=== PATIENT | male | born 1955 | race Caucasian/White ===

== ENCOUNTER 2019-07-03 13:23 | Outpatient (CLI) | payer OTHER, SELFPAY ==
--- NOTE | ~2019-07-03 | NM_ITS ---
EXAMINATION: NM muga DATE: 07/03/2019 14:59 INDICATION: Atrioventricular block. COMPARISON: Chest CT 07/22/2014 TECHNIQUE: Stannous pyrophosphate was administered IV. After a waiting period, 21.4 mCi Tc-99m pertec hnetate was administered IV to radiolabel the red blood cells. Gated images of the heart were obtaine d in the best septal view.] FINDINGS: There is no regional wall motion abnormality or paradoxical motion of the left ventricle. The left ventricular ejection fraction measures 49%. IMPRESSION: 1. Left ventricular ejection fraction measuring 49%. Reviewed, dictated and finalized at location A. ICAL NURSE
== END 2019-07-03 13:24 | disposition home or self-care (01) ==
LOC: ANHIMG 13:32
PROVIDERS: PCP Internal Medicine
DX: I44.30 Unspecified atrioventricular block (principal)
CPT/HCPCS: 78472; A9538

== ENCOUNTER → 2020-10-03 00:22 | Outpatient (CLI) | payer OTHER, SELFPAY ==
[2020-10-03 21:52] LABS: SARS-CoV-2 RNA PCR Negative
== END ==
PROVIDERS: PCP Internal Medicine; Visit Provider Internal Medicine Cardiovascular Disease
DX: Z01.812 Encounter for preprocedural laboratory examination (principal); Z20.822 Contact with and (suspected) exposure to COVID-19
CPT/HCPCS: C9803; U0003; U0005

== ENCOUNTER → 2020-10-06 02:48 | Day surgery (SDC) | payer OTHER, SELFPAY ==
[2020-10-06 07:36] LABS: Basophils Percent Auto 0.4 % (0.2-1.2); Eosinophils Absolute Auto 0.7 K/mm3 (0-0.3); Eosinophils Percent Auto 9.9 % (0-4.4); Hematocrit 42.3 % (42.0-52.0); Immature Granulocyte Absolute 0.02 K/mm3 (0.00-0.031); Immature Granulocyte Percent A 0.3 % (0-0.5); Lymphocytes Absolute Auto 2.29 K/mm3 (0.9-3.2); Lymphocytes Percent Auto 32.7 % (18.3-44.2); Mean Corpuscular HGB Conc 35.5 g/dl (32-36); Mean Corpuscular Hemoglobin 33.7 pg (26-34); Mean Corpuscular Volume 95.1 fl (80-100); Mean Platelet Volume 9.8 fl (7.4-10.4); Monocytes Absolute Auto 0.8 K/mm3 (0.1-0.6); Monocytes Percent Auto 11.7 % (2.6-8.5); Neutrophils Absolute Auto 3.2 K/mm3 (1.3-6.7); Platelet Count Result 169 k/mm3 (150-375); Red Blood Count 4.45 M/mm3 (4.6-6.20); Red Cell Distribution Width 12.1 % (11.5-14.5)
[2020-10-06 07:43] VITALS: BP 142/84; PULSE 62; RESP 12; TEMP 36.4; O2SAT 100; BMI 29.8
[2020-10-06 07:46] LABS: Anion Gap 8 mmol/L (8-16); Blood Urea Nitrogen 11 mg/dL (9-20); Calcium 8.9 mg/dL (8.4-10.2); Carbon Dioxide 24 mmol/L (22-30); Chloride 111 mmol/L (98-107); Estimated Glomerular Filt Rate > 60; Glucose 107 mg/dL (75-110); Sodium 143 mmol/L (137-145)
[2020-10-06 08:04] LABS: Prothrombin Time 13.9 Seconds (11.1-14.7)
--- NOTE | 2020-10-06 09:46 | SUR.PREOP ---
0930 - procedure postponed for today - due to a scheduling error. Procedure scheduled without physician availability. Pt and daughter updated on information and instructed to return tomorrow morning for procedure. Pt with stated understanding. IV removed- no redness or swelling at the site.
== END ==
PROVIDERS: Internal Medicine Cardiovascular Disease; PCP Internal Medicine; Visit Provider Specialist
DX: Z45.010 Encounter for checking and testing of cardiac pacemaker pulse generator [battery] (principal); Z53.8 Procedure and treatment not carried out for other reasons; I10 Essential (primary) hypertension; I44.7 Left bundle-branch block, unspecified; Z87.891 Personal history of nicotine dependence; D86.9 Sarcoidosis, unspecified
CPT/HCPCS: 36415; 80048; 85025; 85610; C9803; J0690; J1644; J7040; U0003; U0005

== ENCOUNTER 2020-10-07 01:45 | Day surgery (SDC) | payer OTHER, SELFPAY ==
[2020-10-07 09:07] VITALS: BMI 29.8
[2020-10-07 09:10] VITALS: BP 142/82; PULSE 69; RESP 22; TEMP 36.6; O2SAT 98
--- NOTE | 2020-10-07 09:32 | PM.IMHP ---
H&P: HPI History of Present Illness Date/Time: 10/07/20 09:32 Chief Complaint: Elective admission for pacemaker generator change Narrative: This is a 65-year-old man who has a long history of complete heart block that was diagnosed back in June of 2011. His heart block is felt to be secondary to sarcoidosis. He also carries the diagnosis of hemochromatosis. The patient received a [employer] dual-chamber pacemaker at that time for treatment of symptomatic bradycardia in the setting of complete heart block. The device has been functioning well and on routine office follow-up has been found to be at [facility]. According to pacemaker interrogation he has become pacemaker dependent. He has no other cardiovascular complaints today and feels well. He follows with physicians at [facility] regarding his sarcoidosis. Review of Systems Constitutional: Constitutional: Reports no additional constitutional complaints Eyes: Eyes: Reports no additional eye complaints ENT: Reports system reviewed and no additional complaints, except as documented Cardiovascular: Cardiovascular: Reports no additional cardiovascular complaints Respiratory: Respiratory: Reports dyspnea on exertion Gastrointestinal: Gastrointestinal: Reports no additional gastrointestinal complaints Musculoskeletal: Musculoskeletal: Reports no additional musculoskeletal complaints Integumentary/Breasts: Skin/Breast: Reports system reviewed and no additional complaints, except as docu Neurologic: Reports system reviewed and no additional complaints, except as documented Psychiatric: Psychiatric: Reports no additional psychiatric complaints [facility] Past Medical History Medical History (Updated 04/12/20 @ 10:00 by David Hamilton DO) Erectile dysfunction Essential (primary) hypertension Hereditary hemochromatosis History of pacemaker Left bundle branch block (LBBB) Liver fibrosis Rectal polyp Sarcoidosis Sleep apnea Surgical History Surgical History (Updated 04/12/20 @ 09:02 by Vilma Garvin) H/O knee surgery History of eye surgery 02/01/20 OS- 02/08/20 OD S/P placement of cardiac pacemaker Status cardiac pacemaker Family History Family History (Updated 04/13/19 @ 07:41 by Nirmala Coates CMA) Father Heart disease H/O heart artery stent Bladder cancer Mother Liver cirrhosis Social History Social History (Updated 02/16/20 @ 10:26 by Nirmala Coates CMA) Smoking status: Former smoker Smoking end date: 04/29/06 Alcohol intake: current Gender identity (if verbalized by the patient): Male Spiritual care concerns: No Meds Home Medications and Allergies Home Medications Medication Instructions Recorded Confirmed Type aspirin 81 mg tablet,delayed 81 mg PO DAILY 04/10/19 10/06/20 History release losartan 50 mg tablet 25 mg PO DAILY 04/10/19 10/06/20 History amlodipine 10 mg tablet 10 mg PO DAILY 04/13/19 10/06/20 History omega-3 fatty acids 1,000 mg 1,000 mg PO DAILY 04/13/19 10/06/20 History capsule hydroxychloroquine 200 mg tablet 100 mg PO DAILY 10/13/19 10/06/20 History Allergies Allergy/AdvReac Type Severity Reaction Status Date / Time ioversol Allergy Unknown Unknown Verified 10/06/20 19:56 Iodinated Contrast Media Allergy Rash Verified 10/06/20 19:56 Vital Signs Vital Signs - 24 hr 10/07/20 09:10 Temperature 36.6 C Pulse Rate 69 Respiratory Rate 22 H Blood Pressure 142/82 H Pulse Oximetry 98 Exam Const: General: comfortable and no acute distress Other: Pleasant white male appearing his stated age comfortable cooperative in no distress of any sort HENMT: Mouth: Yes moist mucous membranes Eyes: Sclera: sclerae normal Pupils: Equal, round and reactive pupils present Neck: Neck: supple and no JVD Thyroid: thyroid normal Resp: Effort & Inspection: normal respiratory effort Auscultation: clear to auscultation bilaterally Other: Pacemaker pocket in the left subclavian fossa is un
--- NOTE | 2020-10-07 09:36 | P.SEDATION_ITS ---
Moderate Sedation Note-Pt Data Patient Data Diagnosis: Complete heart block, permanent pacemaker at [facility] Present Complaint: No complaints Procedure to be performed/Plan: Pacemaker generator change Allergies Allergy/AdvReac Type Severity Reaction Status Date / Time ioversol Allergy Unknown Unknown Verified 10/06/20 19:56 Iodinated Contrast Media Allergy Rash Verified 10/06/20 19:56 Home Medications Medication Instructions Recorded Confirmed Type aspirin 81 mg tablet,delayed 81 mg PO DAILY 04/10/19 10/06/20 History release losartan 50 mg tablet 25 mg PO DAILY 04/10/19 10/06/20 History amlodipine 10 mg tablet 10 mg PO DAILY 04/13/19 10/06/20 History omega-3 fatty acids 1,000 mg 1,000 mg PO DAILY 04/13/19 10/06/20 History capsule hydroxychloroquine 200 mg tablet 100 mg PO DAILY 10/13/19 10/06/20 History Sedation/Anesthesia: No previous sedation/anesthesia problems (including family history). [facility] Past Medical History Medical History (Updated 04/12/20 @ 10:00 by David Hamilton DO) Erectile dysfunction Essential (primary) hypertension Hereditary hemochromatosis History of pacemaker Left bundle branch block (LBBB) Liver fibrosis Rectal polyp Sarcoidosis Sleep apnea Surgical History Surgical History (Updated 04/12/20 @ 09:02 by Vilma Garvin) H/O knee surgery History of eye surgery 02/01/20 OS- 02/08/20 OD S/P placement of cardiac pacemaker Status cardiac pacemaker Family History Family History (Updated 04/13/19 @ 07:41 by Nirmala Coates CMA) Father Heart disease H/O heart artery stent Bladder cancer Mother Liver cirrhosis Social History Social History (Updated 02/16/20 @ 10:26 by Nirmala Coates CMA) Smoking status: Former smoker Smoking end date: 04/29/06 Alcohol intake: current Gender identity (if verbalized by the patient): Male Spiritual care concerns: No Mod Sed Physical Exam Physical Exam Pre Procedural Exam: Normal: Appearance, Throat, Airway, Lungs, Heart Size, Heart Rate, Heart Rhythm, Neuro Exam and Extremities Hours since solid foods: 12 Hours since liquid intake: 12 Internal Medicine - PN: Obj Da Vital Signs Vital Signs: Vital Signs - 24 hr 10/07/20 09:10 Temperature 36.6 C Pulse Rate 69 Respiratory Rate 22 H Blood Pressure 142/82 H Pulse Oximetry 98 ASA Classification/Sedation ASA Classification/Sedation ASA Class: II Emergent: No Risks: Risks, benefits and alternatives explained and patient/family accepted plan for sedation. Patient re-evaluated immediately prior to sedation.
--- NOTE | 2020-10-07 11:12 | ECG_ITS ---
Measurements Intervals Indian Rate: 64 P: 38 NV: 181 QRS: -79 QRSD: 198 T: 86 QT: 492 QTc: 510 Interpretive Statements ATRIAL SENSE- ELECTRONIC VENTRICULAR PACEMAKER NO FURTHER INTERPRETATION IS POSSIBLE ATYPICAL ECG Electronically Signed On 10-07-2020 15:04:15 CDT by Gildardo Gale D.O.
--- NOTE | 2020-10-07 11:14 | WPDCARDPROC ---
Cardiac Cath Procedure Note Date of procedure:: 10/07/20 Performing physician:: Mak Moeller MD Indication:: complete heart block with permanent pacemaker at [facility] Brief clinical history:: this is a 65-year-old man who has had a permanent pacemaker implanted 9 years ago for treatment of complete heart block. The device is now at [facility] he is admitted electively as an outpatient for a generator change. He is pacemaker dependent. Procedure Procedure performed:: Temporary transvenous pacemaker explantation of depleted pulse generator implantation of new dual-chamber pulse generator Sedation/Medication given:: fentanyl 50 mg Versed 4 mg case start time 10:13 a.m. case end time 11:09 a.m. sedation provided by Jennifer Hernandez RN, trained observer Access site:: right femoral vein Estimated blood loss:: less than 10 cc Procedure note:: patient was brought to the cardiac catheterization lab in the postabsorptive state. The right femoral triangle was prepared and draped in the usual fashion. 1% lidocaine was administered for local anesthesia. Following this the femoral vein was punctured and a 6 Albanian vascular sheath was placed. After this a balloon tipped temporary transvenous pacing wire was placed under fluoroscopic visualization into the right ventricle. The balloon was deflated and the pacemaker performance was tested using the temporary pacemaker generator and was working very well. The device was then turned on at a backup rate at 50 beats per minute demand output at 2 mA. Following this I broke scrub and the left anterior chest wall was prepped and draped in the usual sterile fashion the site of the chronically implanted device. This was then prepped and draped in the usual fashion. The patient then received another and injection of lidocaine just inferior to the previous incisional above the palpable pacemaker device in the subcutaneous pocket. Using the plasma blade incision was made just below the previous incision and sharp and blunt dissection was used to separate the subcutaneous tissue to the fibrous capsule. Electrocautery was used to provide cutaneous hemostasis. Following this using the plasma blade the fibrous pocket was opened and the chronically implanted device was visualized and seen to be unremarkable in appearance and remove the pocket with the attached leads. The inferior aspect of the pocket was extended slightly using the plasma blade. Following this additional cautery was used to provide hemostasis in the pocket. After this the pocket was irrigated with antibiotic infused saline. Using the torque wrench the leads were disconnected from the depleted generator. Using the same torque wrench the leads were connected to the new pulse generator and the entire assembly was then placed into the pocket. The pocket was closed in layers using 3 0 Vicryl in an interrupted fashion for the subcutaneous tissue and 4 0 Vicryl in a running subcuticular fashion for the skin. The wound was dressed with an Aquacel dressing the temporary wire was then removed and the venous sheath was removed with direct manual compression in the catheterization lab. Following this patient was taken to the holding area for recovery. Postop antibiotics were ordered for prescription following discharge. The procedure was well tolerated and uncomplicated. Findings:: The explanted device is a [employer] dual-chamber pacemaker model Accent DR RF 2210 implanted June 29, 2011. The new pulse generator is a [employer] Assurity MRI 2272 serial number [id number]. device is programmed in the DDD mode lower rate limit 60 upper rate limit 130 AV delay 200/150 millisecond. The chronic atrial lead is a [employer] Optisense 1999/52cm bipolar lead serial number [id number]. the atrial threshold is 0.5 volts at 0.4 milliseconds sensing P-waves at 2.9 mV lead impedance 390 Ohms. The ventricular lead is the chronically implanted [employer]
[2020-10-07 11:45] VITALS: BP 115/76; PULSE 60; RESP 15; O2SAT 98
[2020-10-07 12:00] VITALS: BP 114/67; PULSE 66; RESP 14; O2SAT 96
[2020-10-07 12:15] VITALS: BP 102/70; PULSE 60; RESP 15; O2SAT 96
[2020-10-07 12:30] VITALS: BP 102/69; PULSE 60; RESP 16; O2SAT 95
[2020-10-07 13:00] VITALS: BP 129/74; PULSE 60; RESP 15; O2SAT 98
--- NOTE | 2020-10-07 14:03 | SUR.PHASEII ---
Unable to transmit [place] prescription for patient and when I attempted to Print the prescription it was under Falguni Fowler NP who does not have a BRE[facility] number to prescribe the medication. Patient declined further attempts to obtain the prescription of [place] at this time.
== END 2020-10-07 14:02 | disposition home or self-care (01) ==
PROVIDERS: PCP Internal Medicine; Visit Provider Specialist
PROC: 0JPT0PZ Removal of Cardiac Rhythm Related Device from Trunk Subcutaneous Tissue and Fascia, Open Approach (ICD-10-PCS; CPT 33228; principal; 2020-10-07 09:30)
DX: Z45.010 Encounter for checking and testing of cardiac pacemaker pulse generator [battery] (principal); I44.2 Atrioventricular block, complete; I10 Essential (primary) hypertension; D86.9 Sarcoidosis, unspecified; G47.30 Sleep apnea, unspecified; K74.00 Hepatic fibrosis, unspecified; Z79.82 Long term (current) use of aspirin; Z95.5 Presence of coronary angioplasty implant and graft; Z87.891 Personal history of nicotine dependence
CPT/HCPCS: 33228; A9270; C1785; C1894; J0690; J2250; J3010; J7040

== ENCOUNTER 2025-04-19 10:28 | Outpatient (CLI) | payer MEDICARE, OTHER, SELFPAY ==
--- NOTE | ~2025-04-19 | XR_ITS ---
[id number] 04/19/2025 11:29 Indication: Right foot pain and swelling Procedure: 3 views right foot Comparison: No prior studies for comparison. Findings: There is moderate osteoarthritis of the first MTP joint. Lisfranc joint intact. There is a degenerative calcaneal enthesophyte. There are degenerative changes of the talonavicular joint. No fracture, subluxation or dislocation. Impression: 1: Mild-moderate polyarticular osteoarthritis. Reviewed, dictated and finalized at location O. DER Impression: 1: Mild-moderate polyarticular osteoarthritis.
== END 2025-04-19 10:29 | disposition home or self-care (01) ==
LOC: GOSHIMG 10:28
PROVIDERS: PCP Internal Medicine; Visit Provider Nurse Practitioner Family
DX: M19.071 Primary osteoarthritis, right ankle and foot (principal)
CPT/HCPCS: 73630